=== PATIENT | male | born 1975 | race Caucasian/White ===

== ENCOUNTER 2024-10-30 13:41 | Outpatient (CLI) | payer MEDICARE, SELFPAY | END 2024-10-30 13:42 | disposition home or self-care (01) | PROVIDERS: Visit Provider Family Medicine | DX: Z00.00 Encounter for general adult medical examination without abnormal findings (principal); E11.9 Type 2 diabetes mellitus without complications; R53.83 Other fatigue; G10 Huntington's disease; Z13.6 Encounter for screening for cardiovascular disorders; Z13.1 Encounter for screening for diabetes mellitus | CPT/HCPCS: 80053; 80061; 82043; 82570; 84403 ==

== ENCOUNTER 2024-11-02 09:11 | Outpatient (CLI) | payer MEDICARE, SELFPAY | END 2024-11-02 09:12 | disposition home or self-care (01) | LOC: NFLDREF 11-06 03:55 | PROVIDERS: PCP Family Medicine; Visit Provider Family Medicine | DX: R53.83 Other fatigue (principal) | CPT/HCPCS: 84403 ==

== ENCOUNTER 2024-12-23 14:45 | Emergency (ER) | payer MEDICARE, SELFPAY ==
[2024-12-23 14:47] VITALS: BP 165/106; PULSE 91; RESP 18; TEMP 36.3; O2SAT 96
--- OUTSIDE RECORDS SUMMARY | 2024-12-23 14:47 | XMS_ITS | Clinical Summary ---
Author Organization [facility] Address [address] [place] [address] Care Team Providers Care Venue Attendant Name Role Phone Pcp, No Primary Care Provider Unavailabl e Allergies No known active allergies Medications carbamide peroxide (DEBROX) 6.5 % otic solutionIndicati ons:Impacted cerumen, left ear,Impacted cerumen, right ear Place 5 Drops into both ears two times daily. 15 mL 04/28/2024 Active Active Problems No known active problems Encounters Date Type Department Care Team Description 11/05/2024 Transcribe Orders [facility] [place] [phone] Steve Fox MD from Last 3 Months Immunizations Immunization Administration Dates Next Due Td, Preservative Free (age >= 7 Years) 1 Tdap, Unspecified 06/24/2008 Varicella Vaccine 1980 Yellow Fever 10/14/2013 Social History Tobacco Use Types Packs/Day Years Used Date Smoking Tobacco: Never Smokeless Tobacco: Never Alcohol Use Standard Drinks/Week Comments Never 0 (1 standard drink = 0.6 oz pur e alcohol) Sex and Gender Information Value Date Recorded Sex Assigned at Not on file Legal 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 Gender Identity Not on file Sexual Orientation Not on file Obstetrics History Last Filed Vital Signs Vital Sign Reading Time Taken Comments Blood Pressure 124/88 04/28/2024 2:20 PM CDT Pulse 87 04/28/2024 2:20 PM CDT Temperature 36.3 C (97.3 F) 10/14/2013 9:14 AM CDT Respiratory Rate - - Oxygen Saturation 97% 04/28/2024 2:20 PM CDT Inhaled Oxygen Concentration - - Weight 100.4 kg (221 lb 4.8 oz) 04/28/2024 2:20 PM CDT Height 182.4 cm (5' 11.81) 04/28/2024 2:20 PM C DT Body Mass Index 30.17 04/28/2024 2:20 PM CDT Plan of Treatment Upcoming Encounters Date Type Department Care Team (Late st Contact Info) Description 01/18/2025 10:55 AM PREVENTATIVE MAINTENANCE TECHNICIAN Office Visit [facility] [address] [address] [place] [address] [place] [address] Health Maintenance Due Date Last Done Comments Depression screening for age 12+ 1988 HIV for age 15-65 02/22/1991 Hepatitis C screening for ag e 18-79 02/22/1994 Hepatitis B series for 19+ ( 1 of 3 - 19+ 3-dose series) 02/22/1995 Tetanus booster 03/15/2020 03/15/2010, 06/24/2008 Colonoscopy through age 75 02/22/2021 Lipids for age 45-75 02/22/2021 Influenza Vaccine (#1) 2024 BMI (ht and wt on same day) for age 18+ 04/28/2025 04/28/2024 RSV vaccine for adults or (1 - 1-dose 75+ series) 02/22/2051 Pneumococcal series for age 6-49 Aged Out No longer eligible b ased on patient's age to complete this topic Insurance MEDICARE [place] ONLY Care Teams Venue Attendant Relationship Specialty Start Date End Date Pcp, No . PCP - General 10/12/13
--- OUTSIDE RECORDS SUMMARY | 2024-12-23 14:47 | XMS_ITS | Encounter Summary ---
Author Organization [facility] Address [address] [place] [address] Care Team Providers Care Admission Specialist Name Role Phone Harpreet Ramirez MD Primary Care Provider [phone] Encounter Details Date Type Department Care Team (Latest Contact Info) Description 12/01/2024 Orders Only [facility] ProviderTerrance [place] [address] Social History Tobacco Use Types Packs/Day Years Used Date Smoking Tobacco: Never Smokeless Tobacco: Never Alcohol Use Standard Drinks/Week Comments Yes 1 (1 standard drink = 0.6 oz pure alcohol) Alcoholic Drinks/day: Amount:1-2 drinks; Freq:Never; PHQ-2 Answer Date Recorded PHQ-2 Score 0 04/18/2021 Sex and Gender Information Value Date Recorded Sex Assigned at Not on file Legal Sex Male 4:40 AM CDT Gender Identity Not on file Sexual Orientation Not on file documented as of this encounter Plan of Treatment Not on file documented as of this encounter Procedures Procedure Name Priority Date/Time Associated Diagnosis Comments LABORATORY REPORT 12/01/2024 documented in this encounter Results * LABORATORY REPORT (12/01/2024) us Interface Provider DUMMY/OTHER/AR Final Resu lt documented in this encounter Visit Diagnoses Not on filedocumented in this encounter Care Teams Admission Specialist Relationship Specialty Start Date End Date Harpreet Ramirez MD [address] [facility] [facility] [place] [address] PCP - General 01/18/14 documented as of this encounter
--- OUTSIDE RECORDS SUMMARY | 2024-12-23 14:47 | XMS_ITS | Encounter Summary ---
Author Organization [facility] Address [address] [place] [address] Care Team Providers Care Vp Compliance Name Role Phone Harpreet Ramirez MD Primary Care Provider [phone] Reason for Visit * Reason Comments Provider Return Call Request Encounter Details Date Type Department Care Team (Late st Contact Info) Description 11/05/2024 Telephone [facility] [address] [place], [place] [address] Linda Severino, RN Provider Return Call Request Social History Tobacco Use Types Packs/Day Years [...] on file documented as of this encounter Nursing Notes * Mirella Rogers MD - 11/10/2024 10:14 AM CDT I spoke with him today, pt has poorly controlled diabetes, and 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 If so, please close encounter. * Linda Severino RN - 11/05/2024 11:26 AM CDT Message from Dr. Moran nurse at [facility] asking Dr. Rogers to call him at [phone] [facility] #[phone]. documented in this encounter Plan of Treatment Not on file documented as of this encounter Visit Diagnoses Not on filedocumented in this encounter Care Teams Vp Compliance Relationship Specialty Start Date End Date Harpreet Ramirez MD [address] [facility] [address] [place] [address] PCP - General 01/18/14 documented as of this encounter
--- OUTSIDE RECORDS SUMMARY | 2024-12-23 14:47 | XMS_ITS | Clinical Summary ---
Author Organization [facility] Address [address] [place] [address] Care Team Providers Care Campus Police Officer Name Role Phone Harpreet Ramirez MD Primary Care Provider [phone] Source Comments You are receiving this document as you are listed as the primary care provider,follow-up provider, or the patient has been referred to you for consultation.This is in compliance with the Medicare andMedicaid EHR Incentive Program,which states Providers who transition their patient to another setting of careor provider of care or refers their patient to another provider of care shouldprovide summary care record for each transition of care or referral. [facility] Allergies No known active allergies Medications ARIPiprazole (ABILIFY) 5 MG tablet Take 1 Tablet (5 mg) by mouth daily. 90 Tablet 3 03/30/2024 Active citalopram (CELEXA) 20 MG tablet Take 1 Tablet (20 mg) by mouth daily. 90 Tablet 3 03/30/2024 Active Active Problems Problem Noted Date Diagnosed Date Malaria 12/24/2016 Tinea versicolor 01/19/2015 Encounters Date Type Department Care Team Description 12/01/2024 Orders Only [facility] DEPARTMENT Provider, MD Terrance 11/05/2024 Telephone [facility] [place], [place] [address] Linda Severino, RN Provider Return Call Request 11/02/2024 Telephone [facility] [address] [place] [address] Bernie Archuleta, RN Questions from Last 3 Months Immunizations Immunization Administration Dates Next Due Chicken Pox - History of Illness 1980 HepA Adult (19+ yrs) 01/19/2015 HepB Adult (Engerix-B, 20+ y rs, 3 dose series) 01/19/2015,03/21/2005 Influenza IIV4 (Quadrivalent) 0.5mL (04884) 12/19,12/01/2014 MMR 01/19/2015 Moderna Monovalent 12+ 07/14/2020,06/15/2020 Rabies 02/16/2015,01/26/2015,01/19/2015 Td (7+ yrs) 03/15/2010 Typhoid (Typhim Vi, IM) 01/19/2015 YF (Yellow Fever) 10/14/2013 Social History Tobacco Use Types Packs/Day [...] on file Sexual Orientation Not on file Last Filed Vital Signs Vital Sign Reading Time Taken Comments Blood Pressure 141/94 06/17/2023 3:48 PM CDT Pulse 77 06/17/2023 3:48 PM CDT Temperature 36.7 C (98 F) 03/28/2017 10:31 AM DOGGER Respiratory Rate 20 03/21/2017 11:29 AM DOGGER Oxygen Saturation 97% 03/21/2017 3:31 PM DOGGER Inhaled Oxygen Concentration - - Weight 98.7 kg (217 lb 9.6 oz) 03/30/2024 10:35 AM DOGGER Height 184.8 cm (6' 0.75) 04/18/2021 9:20 AM CS T Body Mass Index 28.91 04/18/2021 9:20 AM DOGGER Plan of Treatment Health Maintenance Due Date Last Done Comments Colon Cancer Screening Plan Due 1975 Medicare Annual Wellness Visit 1975 DTaP/Tdap/Td Vaccine (1 - Tdap) 03/16/2010 03/15/2010 Cholesterol 02/22/2011 HepB Vaccine (3) 03/16/2015 01/19/2015, 03/21/2005 HepA Vaccine (2 of 2 - Risk 2-dose series) 07/21/2015 01/19/2015 COVID-19 Vaccine (3 - 2024-2 6 season) 2024 07/14/2020, 06/15/2020 Influenza Vaccine (#1) 2024 7, 12/01/2014 Zoster/Shingles Vaccine (1 o f 2) 02/22/2026 Hep C Screening (Preventive Services) Completed 01/09/2017 HIV Screening (Preventive Services) Completed 03/22/2017, 03/22/2017, 12/25/2016 Hib Vaccine Aged Out No longer eligi ble based on patient's age to complete this topic IPV (Polio) Vaccine Aged Out No longe r eligible based on patient's age to complete this topic MCV4 Vaccine Aged Out No longer eligi ble based on patient's age to complete this topic Meningococcal B Vaccine Aged Out No l onger eligible based on patient's age to complete this topic Pneumococcal Vaccine Aged Out No long er eligible based on patient's age to complete this topic Procedures Procedure Name Priority Date/Time Associated Diagnosis Comments LABORATORY REPORT 12/01/2024 HIV 1/2 AG/AB 4TH GEN Routine 03/22/2017 9:54 AM DOGGER FUO (fever of unknown origin) Pneumonia of left lower lobe due to infectious organism (HRC) HEPATITIS C ANTIBODY, WITH REFLEX (ANTI-HCV) Routine 01/09/2017 11:26 AM DOGGER Elevated liver enzymes from Last 3 Months or Most Recently Relevant to Health Maintenance Results * LABORATORY REPORT (12/01/2024) us Interface Provider MD LAROSE/OTHER/AR Final Resu lt * HIV 1/2 Ag/Ab 4th Generation (03/22/2017 9:54 AM DOGGER) HIV-1 p24 Ag and HIV-1/HIV-2 Ab Nonreactive Nonreactive PN SOFT 03/22/2017 9:54 AM DOGGER 03/22/2017 10:50 AM DOGGER Narrative PN SOFT - 03/22/2017 1:59 PM DOGGER Performed at [address] [address] CLIA number [id number] Gray Bundy MD LAB_1 Final Result Performing Organization Address [facility] Co de Phone Number PN SOFT [address] [place] [address] * Hepatitis C Virus Klaudia In-House (01/09/2017 11:26 AM DOGGER) Hepatitis C Antibody Nonreactive Nonreactive PN SOFT 01/09/2017 11:2 6 AM DOGGER 01/09/2017 2:13 PM DOGGER Narrative PN SOFT - 01/09/2017 2:58 PM DOGGER Performed at [address] [address] CLIA number [id number] us Gray Bundy MD LAB_1 Final Result Performing Organization Address [facility] de Phone Number PN SOFT [address] [place] [address] from Last 3 Months or Most Recently Relevant to Health Maintenance Insurance MEDICARE Advance Directives * Full Code (Latest Code Status on File) Date Activated Date Inactivated Comments 12/24/2016 9:37 PM 12/28/2016 3:29 PM Care Teams Campus Police Officer Relationship Specialty Start Date End Date Harpreet Ramirez MD [address] [place] [address] [address] [place] [address] PCP - General 01/18/14
--- OUTSIDE RECORDS SUMMARY | 2024-12-23 14:47 | XMS_ITS | Clinical Summary ---
Author Organization [facility] Address [address] [place] [address] Care Team Providers Care Collection Support Specialist Name Role Phone Elsewhere, Pcp Primary Care Provider Unavailabl e Source Comments Patient records contain information from all sites at [facility]. For routine questions regarding patient records, call [phone] during business hours, M-F 8:00 AM - 5:00 PM Central Time. Record requests for emergency care only can be directed to [phone] at any time.[facility] Allergies No known active allergies Medications metFORMIN (GLUCOPHAGE) 500 mg tablet Take 1 tablet (500 mg total) by mouth 2 (two) times a day with meals for 10 days. 20 tablet 3 Active benzonatate (Tessalon) 200 mg capsule Take 1 capsule (200 mg total) by mouth 3 (three) times a day as needed for cough. 20 capsule 5 Active albuterol (Ventolin HFA) 90 mcg/actuation inhaler Inhale 2 puffs every 6 (six) hours as needed for wheezing or shortness of breath for up to 10 days. 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 Gender Identity Not on file Sexual Orientation Not on file Last Filed Vital Signs Vital Sign Reading Time Taken Comments Blood Pressure 152/101 03/09/2024 2:15 PM LONG WALL MINING MACHINE TENDER Pulse 81 03/09/2024 2:15 PM LONG WALL MINING MACHINE TENDER Temperature 36.8 C (98.2 F) 03/09/2024 1:50 PM LONG WALL MINING MACHINE TENDER Respiratory Rate 20 03/09/2024 1:50 PM LONG WALL MINING MACHINE TENDER Oxygen Saturation 94% 03/09/2024 2:15 PM LONG WALL MINING MACHINE TENDER Inhaled Oxygen Concentration - - Weight 101 kg (222 lb 0.1 oz) 03/09/2024 1:50 PM LONG WALL MINING MACHINE TENDER Height 182 cm (5' 11.65) 04/26/2021 11:25 AM CS T Body Mass Index 30.4 04/26/2021 11:25 AM LONG WALL MINING MACHINE TENDER Plan of Treatment Health Maintenance Due Date Last Done Comments CT Colonography 1976 Cologuard 1975 Colonoscopy 1976 Colorectal Cancer Screening 1976 FIT 1976 HIV Screening 1976 Hepatitis C Screening 1976 Lipid (Cholesterol) Screening 1976 Hepatitis B Vaccines (3 of 3 - 19+ 3-dose series) 03/16/2015 01/19/2015, 03/21/2005 DTaP,Tdap,and Td Vaccines (3 - Td or Tdap) 03/15/2020 03/15/2010, 06/24/2008 COVID-19 Vaccine (3 - 2024-2 6 season) 2024 07/14/2020, 06/15/2020 Influenza Vaccine (#1) 2024 7, 12/01/2014 Fasting Glucose for Diabetes Screening 12/22/2025 12/22/2022, 12/22/2022 IPV Vaccines Aged Out No longer eligi ble based on patient's age to complete this topic Pneumococcal vaccine (0-49 years) Aged Out No longer eligible b ased on patient's age to complete this topic Procedures Procedure Name Priority Date/Time Associated Diagnosis Comments BASIC METABOLIC PANEL, S/P STAT 12/22/2022 3:44 PM CDT from Last 3 Months or Most Recently Relevant to Health Maintenance Results * (ABNORMAL) Basic Metabolic Panel (12/22/2022 3:44 PM CDT) Pathologist [facility] Potassium, P 4.1 3.6 - 5.2 mmol/L 12/22/2022 4:10 PM CDT NPRG Sodium, P 135 135 - 145 mmol/L 12/22/2022 4:10 PM CDT NPRG Chloride, P 99 98 - 107 mmol/L 12/22/2022 4:10 PM CDT NPRG Bicarbonate, P 25 22 - 29 mmol/L 12/22/2022 4:10 PM CDT NPRG Anion Gap, P 11 7 - 15 12/22/2022 4:10 PM CDT NPRG BUN (Blood Urea Nitrogen), P 11 8 - 24 mg/dL 12/22/2022 4:10 PM CDT NPRG Creatinine 0.87 0.74 - 1.35 mg/dL 12/22/2022 4:10 PM CDT NPRG Estimated GFR (eGFR) >90 >=60 mL/min/BSA 12/22/2022 4:10 PM CDT NPRG Comment: Estimated GFR calculated using the 2020 CKD_EPI creatinine equation. Calcium, Total, P 9.7 8.6 - 10.0 mg/dL 12/22/2022 4:10 PM CDT NPRG Glucose, P 419(CH) 70 - 140 mg/dL 12/22/2022 4:15 PM CDT NPRG Blood (Blood, Venous) 12/22/2022 3:44 PM CDT 12/22/2022 3:46 PM CDT Roderick Fernandez M.D. LAB BLOOD ADD-ON Final Resul t [facility] [address] [place] [address], [facility] NPRG [facility] [address] [place] [address] from Last 3 Months or Most Recently Relevant to Health Maintenance Insurance MEDICARE Care Teams Collection Support Specialist Relationship Specialty Start Date End Date Elsewhere, Pcp PCP - General Internal Medicine 04/25/21
--- NOTE | 2024-12-23 15:02 | ED.GENADULT ---
HPI - General Adult General Chief complaint: Cough Stated complaint: Coughing up brown Time Seen by Provider: 12/23/24 14:53 History of Present Illness HPI narrative: Patient presents to the emergency department complaining of a productive cough. Patient states his cough has been productive since yesterday . Patient states he does not smoke. No sick contacts. Patient denies any fever. 49-year-old man presenting to the emergency depart with concern of productive cough. Is accompanied here by his significant other. Underlying history of Felicia's. They bring a sample of this product from the cough. It is darkish brown and maybe a little red tinged in a paper towel. Often is clearing his throat. History of diabetes as well. Has not had a fever. Not around anybody who has been sick. Is worried about what this sputum might represent including pneumonia. Is not having abdominal pain. Is not experiencing shortness of breath. Does not really struggle with GERD/dyspepsia. Does have bowel difficulties Significant other note some difficulty sometimes in clearing his throat. Concern of [place]'s progression. She notes how has odd thought progression, connections at times. Related Data Home Medications ?Medication ?Instructions ?Recorded ?Confirmed multivitamin (Daily Multi-Vitamin 1 tab PO QAM 10/30/24 12/23/24 tablet) Previous Rx's ?Medication ?Instructions ?Recorded peg 3350-electrolytes 236 240 ml PO ONCE #4,000 mL 11/02/24 gram-22.74 gram-6.74 gram-5.86 gram solution (Golytely) metformin 500 mg tablet,extended 1,000 mg (2 x 500 mg) PO QPM #180 11/10/24 release 24 hr tabs Allergies Allergy/AdvReac Type Severity Reaction Status Date / Time No Known Drug Allergies Allergy Verified 12/23/24 14:53 Review of Systems Status of ROS: Reports: 6 or more systems reviewed and unremarkable except as noted in History and below [facility] Medical History Primary hypertension ?I10 - Essential (primary) hypertension (ICD-10) Low testosterone ?R79.89 - Other specified abnormal findings of blood chemistry (ICD-10) Insomnia ?G47.00 - Insomnia, unspecified (ICD-10) Fatigue ?R53.83 - Other fatigue (ICD-10) Type 2 diabetes mellitus ?E11.9 - Type 2 diabetes mellitus without complications (ICD-10) History of malaria ?Z86.13 - Personal history of malaria (ICD-10) 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 Frequent movements of upper extremities and shoulders. Choreoathetoid. Some strange correlation in conversation at times. Otherwise appears to be quite clear; mentating normally. Lungs are clear. Heart in elevated rate and regular rhythm. Is well-perfused peripherally. Oropharynx is unremarkable. Abdomen is soft nontender. Reviewing symptoms otherwise then later has had some irritation into his right hand with some tingling through forearm to fingers. Has soreness to palpation without swelling at the medial elbow. This sensation can go through the 3rd through 5th fingers. Const: Vital Signs, click to edit/add: Vital Signs - 24 hr 12/23/24 14:47 Temperature 97.3 F L Pulse Rate [Right Pulse Oximeter] 91 Respiratory Rate 18 Blood Pressure [Ri ght Upper Arm] 165/106 H Pulse Oximetry 96 Oxygen Delivery Me thod Room Air Documenting provider has reviewed patient's vital signs: yes Course Vital Signs Vital signs: Initial Vital Signs Temperature 97.3 F L 12/23/24 14:47 Temperature Source Temporal Artery Scan 12/23/24 14:47 Pulse Rate 91 12/23/24 14:47 Pulse Rhythm Regular 12/23/24 14:47 Pulse Strength 3+ Normal 12/23/24 14:47 Respiratory Rate 18 12/23/24 14:47 Blood Pressure 165/106 H 12/23/24 14:47 Blood Pressure Mean 125 H 12/23/24 14:47 Blood Pressure Position Sitting 12/23/24 14:47 Pulse Oximetry 96 12/23/24 14:47 Oxygen Delivery Method Room Air 12/23/24 14:47 Vital Signs Temperature 97.3 F L 12/23/24 14:47 Pulse Rate 91 12/23/24 14:47 Respiratory Rate 18 12/23/24 14:47 Blood Pressure 165/106 H 12/23/24 14:47 Pulse Oximetry 96 12/23/24 14:47 Oxygen Delivery Method Room Air 12/23/24 14:47 Temperature 97.3 F L 12/23/24 14:47 Pulse Rate 91 12/23/24 14:47 Respiratory Rate 18 12/23/24 14:47 Blood Pressure 165/106 H 12/23/24 14:47 Pulse Oximetry 96 12/23/24 14:47 Oxygen Delivery Method Room Air 12/23/24 14:47 Medical Decision Making MDM Narrative Medical decision making narrative: Generally appears well. I would actually check this sputum sample for for blood. I requested gastroccult test. Might be an aspiration risk and I think it would be prudent to do a chest x-ray as well. Chest x-ray independently reviewed by me looks to be clear infiltrate. Indication: Productive cough Technique: Chest 3 views. Comparison: None. Findings/Impression: Cardiovascular and mediastinum: Heart size is normal. Unremarkable mediastinum. Lungs and pleural spaces: Lungs are clear. No pleural effusion or pneumothorax. Bones and soft tissues: No significant findings. Dictated by Bambi Infante MD @ 12/23/2024 3:37:23 PM Did discuss screening for COVID but does not appear to be exposed. Thought to be unnecessary. I think also has irritated the ulnar groove causing some distal symptoms on the right. This is probably related to these choreoathetoid movements. See patient discharge plan for further discussion It was a pleasure caring for you today. It might be worth a another visit with your neurologist about your GI symptoms. Of course be seen more directly if you are experiencing worsening shortness of breath or fever. Is seems you might be experiencing some degree of an ulnar neuropathy on your left arm/forearm. Would consider at least padding your elbow so it isn't striking or rubbing on anything. Medical Records Medical records reviewed: Yes I reviewed the patient's medical records Lab Data Lab results reviewed: Yes I reviewed the patient's lab results Labs: Lab Results 12/23/24 Range/Units 15:20 Gastric Fluid pH Gastric Occult Blood Negative (Negative) Discharge Plan Discharge Clinical Impression: Productive cough Patient Disposition: Home w/ Parent or Adult Condition: Stable Additional Instructions: It was a pleasure caring for you today. It might be worth a another visit with your neurologist about your GI symptoms. Of course be seen more directly if you are experiencing worsening shortness of breath or fever. Is seems you might be experiencing some degree of an ulnar neuropathy on your left arm/forearm. Would consider at least padding your elbow so it isn't striking or rubbing on anything. Prescriptions: No Action multivitamin [Daily Multi-Vitamin] Tablet 1 tab PO QAM peg 3350-electrolytes [Golytely] 236-22.74-6.74 -5.86 gram recon soln 240 ml PO ONCE Qty: 4000 0RF metformin 500 mg tablet extended release 24 hr 1,000 mg PO QPM Qty: 180 0RF Follow Up/Referrals: Steve Fox MD [Primary Care Provider, Family Practice] Stand Alone Forms: [facility] Info Instructions
--- NOTE | 2024-12-23 15:20 | CRLHL7_ITS ---
For Patients: As a result of the Century Cures Act, medical imaging exams and procedure reports are released immediately into your electronic medical record. You may view this report before your referring provider. If you have questions, please contact your health care provider. Indication: Productive cough Technique: Chest 3 views. Comparison: None. Findings/Impression: Cardiovascular and mediastinum: Heart size is normal. Unremarkable mediastinum. Lungs and pleural spaces: Lungs are clear. No pleural effusion or pneumothorax. Bones and soft tissues: No significant findings. Dictated by Bambi Infante MD @ 12/23/2024 3:37:23 PM (Electronically Signed)
[2024-12-23 15:47] LABS: Gastric Occult Blood* Negative (Negative)
== END 2024-12-23 16:32 | disposition home or self-care (01) ==
PROVIDERS: Emergency Provider Family Medicine; PCP Family Medicine
DX: R05.8 Other specified cough (principal)
CPT/HCPCS: 36415; 71046; 83986; 99283; 99284